=== PATIENT | male | born 1970 | race Caucasian/White ===

== ENCOUNTER 2018-02-24 22:14 | Emergency (ER) | payer SELFPAY ==
[~2018-02-24 22:14] MED LIST: ROCURONIUM BROMIDE INJ 50 MG/5 ML VIAL IV ONE; SUCCINYLCHOLINE CHLORIDE INJ 200 MG/10 ML VIAL ONE
[2018-02-24] MEDS ORDERED: IPRATROPIUM/ALBUTEROL 0.5-2.5 MG/3 ML AMPUL NEB ONE ×2 (22:22→22:37)
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
[2018-02-24] MEDS ORDERED: METHYLPREDNISOLONE INJ 125 MG/2 ML SDV ONE (22:37)
[2018-02-24 22:39] LABS: ABSOLUTE BASOPHILS # (AUTO) 0.1 10^3/uL (0.0-0.2); ABSOLUTE EOSINOPHILS # (AUTO) 0.2 10^3/uL (0.0-0.6); ABSOLUTE LYMPHOCYTES (AUTO) 5.9 10^3/uL (0.5-4.7); ABSOLUTE MONOCYTES (AUTO) 0.6 10^3/uL (0.1-1.4); BASOPHILS % (AUTO) 0.9 % (0-2); EOSINOPHILS % (AUTO) 1.8 % (0-6); HEMATOCRIT 41.7 % (37.9-51.0); HEMOGLOBIN 13.4 g/dL (13.5-17.0); LYMPHOCYTES % (AUTO) 42.3 % (13-45); MEAN CORPUSCULAR HEMOGLOBIN 30.1 pg (27.0-33.4); MEAN CORPUSCULAR HGB CONC 32.3 g/dL (32.0-36.0); MEAN CORPUSCULAR VOLUME 93 fl (80-97); MONOCYTES % (AUTO) 4.6 % (3-13); PLATELET COUNT 537 10^3/uL (150-450); RED BLOOD COUNT 4.46 10^6/uL (4.35-5.55); RED CELL DISTRIBUTION WIDTH 14.2 % (11.5-14.0); SEGMENTED NEUTROPHILS % (AUTO) 50.4 % (42-78); TOTAL CELLS COUNTED % (AUTO) 100 %; WHITE BLOOD COUNT 13.8 10^3/uL (4.0-10.5)
[2018-02-24] MEDS ORDERED: NORMAL SALINE 1000 ML 1,000 ML IV ONE (22:39)
[2018-02-24] MEDS ORDERED: LORAZEPAM 1 MG TABLET ONE (22:39)
[2018-02-24] MEDS ORDERED: LORAZEPAM INJ 2 MG/1 ML VIAL IV ONE (22:40)
[2018-02-24] MEDS ORDERED: LORAZEPAM INJ 2 MG/1 ML VIAL ONE (22:41)
--- NOTE | 2018-02-24 22:41 | RADIOLOGY REPORT (SQ) ---
Chest single view on 02/24/2018 at 10:34 PM CLINICAL INDICATION: Shortness of breath COMPARISON: None FINDINGS: Cardiomegaly is noted. There are left greater than right interstitial and airspace opacities consistent with asymmetric edema and/or pneumonia. Hilar and mediastinal contours are within normal limits. No bony abnormality is noted. IMPRESSION: Bilateral opacities consistent with edema and/or pneumonia.
[2018-02-24] MEDS ORDERED: NITROGLYCERIN/D5W 50 MG/250 ML RTUINJ IV ONE (22:45)
[2018-02-24 22:57] LABS: ARTERIAL BLOOD BASE EXCESS -8.7 mmol/L; ARTERIAL BLOOD H2CO3 1.97 mmol/L (1.05-1.35); ARTERIAL BLOOD HCO3 21.5 mmol/L (20-24); ARTERIAL BLOOD O2 SATURATION 98.7 % (94-98); ARTERIAL BLOOD PCO2 65.6 mmHg (35-45); ARTERIAL BLOOD PO2 177.5 mmHg (80-100); ARTERIAL BLOOD TOTAL CO2 23.5 mmol/L (23-27)
[2018-02-24 23:01] LABS: ARTERIAL BLOOD FIO2 100%; ARTERIAL BLOOD PH 7.13 (7.35-7.45)
[2018-02-24] MEDS ORDERED: ETOMIDATE INJ/PF 20 MG/10 ML SDV IV ONE ×2 (23:01→23:04)
[2018-02-24] MEDS ORDERED: SUCCINYLCHOLINE CHLORIDE INJ 200 MG/10 ML VIAL IV ONE (23:03)
[2018-02-24] MEDS ORDERED: KETAMINE HCL INJ 500 MG/10 ML VIAL ONE (23:03)
[2018-02-24] MEDS ORDERED: PROPOFOL 1,000 MG/100 ML INFUS..BTL IV ONE (23:04)
[2018-02-24] MEDS ORDERED: ROCURONIUM BROMIDE INJ 50 MG/5 ML VIAL IV ONE (23:04)
[2018-02-24] MEDS: PROPOFOL 1,000 MG/100 ML INFUS..BTL IV PRN (23:20)
[2018-02-24 23:40] LABS: TROPONIN I 0.64 ng/mL
[2018-02-24 23:50] LABS: ANION GAP 17 (5-19); BLOOD UREA NITROGEN 13 mg/dL (7-20); CARBON DIOXIDE 21 mmol/L (22-30); CHLORIDE 103 mmol/L (98-107); POTASSIUM 3.5 mmol/L (3.6-5.0); SODIUM 141.3 mmol/L (137-145); TOTAL PROTEIN 7.1 g/dL (6.3-8.2)
[2018-02-24 23:51] LABS: ALANINE AMINOTRANSFERASE 32 U/L (21-72); ALKALINE PHOSPHATASE 59 U/L (38-126); ASPARTATE AMINO TRANSFERASE 30 U/L (17-59); BILIRUBIN,DIRECT 0.3 mg/dL (0.0-0.4); BILIRUBIN,TOTAL 0.5 mg/dL (0.2-1.3); CALCIUM 9.2 mg/dL (8.4-10.2)
--- NOTE | 2018-02-24 23:58 | RADIOLOGY REPORT (SQ) ---
EXAM DESCRIPTION: CLINICAL HISTORY: 47 years Male ETT/OG Placement COMPLETED DATE/TME: 02/24/2018 23:20 COMPARISON: 02/24/2018 at 10:34 PM. FINDINGS: Worsening bilateral infiltrates when compared to the previous study. There is been placement of an ET tube above the level of the winnie. Nasogastric tube passes into the gastric body. No definite pleural fluid. IMPRESSION: Nasogastric tube in the region of the gastric body ET tube approximately 7 cm above the winnie Worsening bilateral infiltrates
[2018-02-24 23:59] LABS: GLUCOSE 424 mg/dL (75-110)
[2018-02-25 00:05] LABS: ARTERIAL BLOOD BASE EXCESS -9.1 mmol/L; ARTERIAL BLOOD H2CO3 2.45 mmol/L (1.05-1.35); ARTERIAL BLOOD HCO3 22.8 mmol/L (20-24); ARTERIAL BLOOD O2 SATURATION 92.9 % (94-98); ARTERIAL BLOOD PO2 91.9 mmHg (80-100); ARTERIAL BLOOD TOTAL CO2 25.3 mmol/L (23-27)
[2018-02-25 00:08] LABS: ARTERIAL BLOOD PH 7.07 (7.35-7.45)
[2018-02-25 00:09] LABS: ARTERIAL BLOOD PCO2 81.3 mmHg (35-45)
[2018-02-25] MEDS ORDERED: FUROSEMIDE INJ/PF 20 MG/2 ML SDV IV ONE (00:15)
[2018-02-25 00:36] LABS: ARTERIAL BLOOD FIO2 100%
[2018-02-25 01:02] VITALS: BP 114/94
[2018-02-25] MEDS: PROPOFOL 1,000 MG/100 ML INFUS..BTL IV PRN (01:10)
--- NOTE | 2018-02-25 10:28 | EKG REPORT ---
SEVERITY:- ABNORMAL ECG - SINUS TACHYCARDIA NONSPECIFIC INTRAVENTRICULAR CONDUCTION DELAY INFERIOR INFARCT, AGE INDETERMINATE ANTEROLATERAL INFARCT, AGE INDETERMINATE : Confirmed by: Ofelia Guy MD 25-Feb-2018 10:27:50
--- NOTE | 2018-02-25 10:29 | EKG REPORT ---
SEVERITY:- ABNORMAL ECG - SINUS TACHYCARDIA NONSPECIFIC INTRAVENTRICULAR CONDUCTION DELAY INFERIOR INFARCT, AGE INDETERMINATE ANTEROLATERAL INFARCT, RECENT : Confirmed by: Ofelia Guy MD 25-Feb-2018 10:28:01
== END 2018-02-25 00:50 | disposition short-term general hospital (02) ==
LOC: ER 22:14
PROC: 0BH17EZ Insertion of Endotracheal Airway into Trachea, Via Natural or Artificial Opening (ICD-10-PCS; principal; 2018-02-24)
DX: J96.00 Acute respiratory failure, unspecified whether with hypoxia or hypercapnia (principal); J81.1 Chronic pulmonary edema; R79.89 Other specified abnormal findings of blood chemistry; R06.02 Shortness of breath; F17.200 Nicotine dependence, unspecified, uncomplicated; Z79.899 Other long term (current) drug therapy
CPT/HCPCS: 93005 ×2; 36415; 87040; 82553; 82803; 82550; 85025; 80053; 84484; 83605; 83880; 71045; 94660 ×2; 93010 ×2; 31500; J3490 ×4; J1940; J2704 ×2; J2930; J2060; J0330; J7620